=== PATIENT | female | born 1995 | race Caucasian/White ===

== ENCOUNTER 2019-03-02 06:27 | Emergency (ER) | payer SELFPAY ==
--- NOTE | 2019-03-02 07:27 | ED.PDOC ---
History of Present Illness - General Chief Complaint: ENT Problem Stated Complaint: right side of face swollen and painful Time Seen by Provider: 03/02/19 07:16 Additional Information: Patient is a 23-year-old female who presents to the ED with chief complaint of right periauricular pain. Patient indicates she has pain anterior to her right ear, posterior, and in the submandibular region inferior to the right ear. Patient denies intrinsic ear ache, hearing loss or discharge from the ear. Patient denies nausea, vomiting, fever, chills. She does not have a headache. No history of previous similar symptoms. Patient indicates she is presently having a cold with nasal congestion, rhinorrhea, mild sore throat, and occasional dry cough. Patient is otherwise asymptomatic and healthy with no other medical concerns. Patient has taken OTC Motrin and Midol with temporary relief of her symptoms. - History of Present Illness Allergies/Adverse Reactions: Allergies NO KNOWN ALLERGY Allergy (Unverified 02/24/12 07:36) Home Medications: Ambulatory Orders Cephalexin [Keflex] 500 mg PO QID #28 cap 09/20/13 Acetaminophen W/ Codeine [Tylenol W/ CODEINE #3] 1 ea PO Q6H PRN #20 03/02/19 Amoxicillin & Pot Clavulanate [Augmentin Tab] 875 mg PO BID #14 tab 03/02/19 Review of Systems - Review of Systems Constitutional: Denies: chills, fever EENTM: States: see HPI Respiratory: States: cough - dry. Denies: short of breath Cardiology: States: no symptoms reported. Denies: chest pain Gastrointestinal/Abdominal: States: no symptoms reported. Denies: abdominal pain, nausea, vomiting Musculoskeletal: States: no symptoms reported. Denies: muscle pain, muscle stiffness Skin: States: no symptoms reported. Denies: rash Endocrine: States: no symptoms reported Hematologic/Lymphatic: States: no symptoms reported All other Systems: Reviewed and Negative Past Medical History (General) - Patient Medical History Hx Seizures: No Hx Stroke: No Hx Dementia: No Hx Asthma: No Hx of COPD: No Hx Cardiac Disorders: No Hx Congestive Heart Failure: No Hx Pacemaker: No Hx Hypertension: No Hx Thyroid Disease: No Hx Diabetes: No Hx Gastroesophageal Reflux: No Hx Renal Disease: No Hx Cancer: No Hx of HIV: No Hx Hepatitis C: No Hx MRSA: No Surgical History: no surgical history - Vaccination History Hx Tetanus, Diphtheria Vaccination: Yes Hx Influenza Vaccination: No Hx Pneumococcal Vaccination: No Immunizations Up to Date: Yes - Social History Hx Tobacco Use: No Hx Alcohol Use: No Hx Substance Use: No Hx Substance Use Treatment: No Hx Depression: No Feels Threatened In Home Enviroment: No Feels Threatened In a Relationship: No Hx Physical Abuse: No Hx Emotional Abuse: No Hx Suspected Abuse: No - Activities of Daily Living Hospice Agency (if applicable):: None - Female History Patient is a Female of Child Bearing Age (10 -59 yrs old): Yes Hx Last Menstrual Period: 09/20/13 Patient : No Family Medical History - Family History Mother Family History: Unknown Physical Exam - Physical Exam General Appearance: Alert, Anxious, No apparent distress Eye Exam: bilateral normal Ear Exam: right ear: other - normal inspection right ear and auricle with normal periauricular exam. There is no erythema, edema, or lesions. Patient has hyperesthesia to light touch in the periauricular and submandibular region., bilateral ear: auricle normal, canal normal, TM normal Nasal Exam: normal inspection Throat Exam: normal mouth inspection, pharynx normal Neck: full range of motion, supple, normal inspection, other - Negative lymphadenopathy Cardiovascular/Respiratory: regular rate, rhythm, no M/R/G - ., normal peripheral pulses Neurologic: resident care associate II-XII nml as tested, no motor/sensory deficits, alert, normal mood/affect, oriented x 3 Skin Exam: normal color Progress - Progress Progress: 03/02/19 09:19 Patient feeling much better at this time status post analgesics. Patient's labs are unremarkable but her CT suggests post auricular cellulitis. Him there is no appreciable erythema or edema post originally but patient does have tenderness to palpation. Will give Augmentin in the ED and dizzy with same and patient to follow-up with her PCP in 2 days for reevaluation. Return to ED precautions discussed including fever, intractable pain, and vomiting. - Results/Orders Results/Orders: 03/02/19 06:51 STREP A SCREEN CULTURE Stat 03/02/19 07:24 Hold Metformin x 48Hrs [id number] 03/02/19 09:14 Amoxicillin & Pot Clavulanate [Augmentin Tab] 875 mg PO ONCE ONE Laboratory Results WBC 7.4 K/mm3 (4.8-10.8) 03/02/19 07:35 RBC 4.83 M/mm3 (4.20-5.40) 03/02/19 07:35 Hgb 13.9 gm/dL (12.0-16.0) 03/02/19 07:35 Hct 42.5 % (36.0-47.0) 03/02/19 07:35 MCV 87.9 fl (81.0-99.0) 03/02/19 07:35 MCH 28.8 pg (27.0-31.0) 03/02/19 07:35 MCHC 32.8 g/dL (33.0-37.0) L 03/02/19 07:35 RDW 13.4 % (11.5-14.5) 03/02/19 07:35 Plt Count 311 K/mm3 (130-400) 03/02/19 07:35 MPV 8.8 fl (7.40-10.4) 03/02/19 07:35 Absolute Neuts (auto) 4.50 K/uL (1.8-6.8) 03/02/19 07:35 Absolute Lymphs (auto) 2.30 K/uL (1.0-3.4) 03/02/19 07:35 Absolute Monos (auto) 0.30 K/uL (0.2-0.8) 03/02/19 07:35 Absolute Eos (auto) 0.10 K/uL (0.0-0.4) 03/02/19 07:35 Absolute Basos (auto) 0.10 K/uL (0.0-0.1) 03/02/19 07:35 Neutrophils % 61.1 % (42.0-78.0) 03/02/19 07:35 Lymphocytes % 31.4 % (20.0-50.0) 03/02/19 07:35 Monocytes % 4.6 % (2.0-9.0) 03/02/19 07:35 Eosinophils % 1.8 % (1.0-5.0) 03/02/19 07:35 Basophils % 1.1 % (0.0-2.0) 03/02/19 07:35 Sodium 137 mmol/L (135-145) 03/02/19 07:35 Potassium 3.9 mmol/L (3.6-5.0) 03/02/19 07:35 Chloride 105 mmol/L (101-111) 03/02/19 07:35 Carbon Dioxide 23 mmol/L (21-31) 03/02/19 07:35 Anion Gap 12.9 (12-18) 03/02/19 07:35 BUN 11 mg/dL (7-18) 03/02/19 07:35 Creatinine 0.71 mg/dL (0.6-1.3) 03/02/19 07:35 BUN/Creatinine Ratio 15.5 (10-20) 03/02/19 07:35 Random Glucose 99 mg/dL (70-105) 03/02/19 07:35 Serum Osmolality 273.2 mOsm/L (275-295) L 03/02/19 07:35 Calcium 9.0 mg/dL (8.4-10.2) 03/02/19 07:35 Urine HCG, Qual Negative (NEGATIVE) 03/02/19 07:00 Group A Strep Rapid Negative (NEGATIVE) 03/02/19 06:51 TECHNIQUE: Spiral CT examination of the neck performed. Multiplanar reformats performed. Intravenous contrast was utilized. This exam was performed according to our departmental dose-optimization program, which includes automated exposure control, adjustment of the mA and/or kV according to patient size and/or use of iterative reconstruction technique. CLINICAL HISTORY PROVIDED: right sugey-auricular/ submandib pain COMPARISON: None available. FINDINGS: Nasal Cavity: Unremarkable. Paranasal Sinuses: Mucosal disease in the right maxillary sinus. Nasopharynx: Unremarkable. Oropharynx: Unremarkable. Oral Cavity: Unremarkable. Hypopharynx: Unremarkable. Larynx: Unremarkable. Trachea: Unremarkable. Thyroid: Unremarkable. Parotid Glands: Unremarkable. Submandibular Glands: Unremarkable. Carotids / Internal Jugular Veins: Unremarkable. Skull Base: Unremarkable. Visible Brain and Orbits: Unremarkable. Lymph Nodes: Bilateral enlarged cervical lymph nodes. A reference right cervical lymph node measures 1.0 cm series 2 [employer] [address] [place] [address], [address] [place] [address] T [phone] F [phone] [email or web address] - Report exported on Mar 02, 2019 09:18:11 -0600 - Page 2 of 2 image 37. A reference left cervical lymph node measures 1.1 cm series 2 image 40. Soft Tissue Mass / Abscess: No soft tissue mass or abscess identified. However there is asymmetric right posterior periauricular skin thickening and subcutaneous fat stranding best seen series 2 image 16. No drainable fluid collection identified. Incidental Findings: None of significance. IMPRESSION: 1. Asymmetric right posterior periauricular skin thickening and subcutaneous fat stranding which may be infectious (cellulitis). No drainable fluid collection identified. 2. Bilateral cervical lymph nodes which may be reactive. Electronically signed by: Cesario Barboza MD 03/02/2019 8:54 AM MANAGER DATABASE Departure - Departure Clinical Impression: Cellulitis and abscess of head Time of Disposition: 09:22 Disposition: Discharge to Home or Self Care Condition: Good Departure Forms: ED Discharge - Pt. Copy, Patient Portal Self Enrollment Instructions: DI for Ear Pain-Adult, Cellulitis and Erysipelas (Skin Infections) Referrals: Emy Banks NP [Primary Care Provider] - 1-2 Days Prescriptions: Acetaminophen W/ Codeine [Tylenol W/ CODEINE #3] 1 ea PO Q6H PRN #20 PRN Reason: Pain Amoxicillin & Pot Clavulanate [Augmentin Tab] 875 mg PO BID #14 tab Home Medications: Ambulatory Orders Cephalexin [Keflex] 500 mg PO QID #28 cap 09/20/13 Acetaminophen W/ Codeine [Tylenol W/ CODEINE #3] 1 ea PO Q6H PRN #20 03/02/19 Amoxicillin & Pot Clavulanate [Augmentin Tab] 875 mg PO BID #14 tab 03/02/19
[2019-03-02] MEDS: HYDROcodone 10MG/APAP 325MG 1 EA TAB PO ONE (07:34)
--- NOTE | 2019-03-02 08:55 | CT ---
TECHNIQUE: Spiral CT examination of the neck performed. Multiplanar reformats performed. Intravenous contrast was utilized. This exam was performed according to our departmental dose-optimization program, which includes automated exposure control, adjustment of the mA and/or kV according to patient size and/or use of iterative reconstruction technique. CLINICAL HISTORY PROVIDED: right sugey-auricular/ submandib pain COMPARISON: None available. FINDINGS: Nasal Cavity: Unremarkable. Paranasal Sinuses: Mucosal disease in the right maxillary sinus. Nasopharynx: Unremarkable. Oropharynx: Unremarkable. Oral Cavity: Unremarkable. Hypopharynx: Unremarkable. Larynx: Unremarkable. Trachea: Unremarkable. Thyroid: Unremarkable. Parotid Glands: Unremarkable. Submandibular Glands: Unremarkable. Carotids / Internal Jugular Veins: Unremarkable. Skull Base: Unremarkable. Visible Brain and Orbits: Unremarkable. Lymph Nodes: Bilateral enlarged cervical lymph nodes. A reference right cervical lymph node measures 1.0 cm series 2 image 37. A reference left cervical lymph node measures 1.1 cm series 2 image 40. Soft Tissue Mass / Abscess: No soft tissue mass or abscess identified. However there is asymmetric right posterior periauricular skin thickening and subcutaneous fat stranding best seen series 2 image 16. No drainable fluid collection identified. Incidental Findings: None of significance. IMPRESSION: 1. Asymmetric right posterior periauricular skin thickening and subcutaneous fat stranding which may be infectious (cellulitis). No drainable fluid collection identified. 2. Bilateral cervical lymph nodes which may be reactive. Electronically signed by: Cesario Barboza MD 03/02/2019 8:54 AM BELT TURNER
[2019-03-02] MEDS: AMOXICILLIN & POT CLAVULANATE 875 MG TAB PO ONE (09:22)
[2019-03-02 09:45] VITALS: BP 116/76; TEMP 98; O2SAT 99
== END 2019-03-02 09:35 | disposition home or self-care (01) ==
LOC: ER 06:27
DX: L02.811 Cutaneous abscess of head [any part, except face] (principal)

== ENCOUNTER 2019-03-04 21:32 | Inpatient (IN) | payer SELFPAY ==
--- NOTE | 2019-03-04 21:38 | ED.PDOC ---
History of Present Illness - General Time Seen by Provider: 03/04/19 21:36 Source: patient - History of Present Illness Initial Comments: 23 yo female who presents with cc of headache and facial cellulitis. Pt reports onset of right-sided preauricular facial swelling and pain which began 4 days ago and worsened for 2 days. Pt was seen here 2 days ago and diagnosed with facial cellulitis by CT scan and begun on amoxicillin. She reports her swelling and pain to right preauricular region is improved, now only constant 2/10 pressure-like pain to the area with some radiation to right ear and right jaw. However, reports new onset today of pain "in my head" behind both eyes and also posterior scalp pain. Pain behind her eyes is described as pressure-like, constant, 6/10 severity, worse with bright lights, nothing tried for relief. Also reports intermittent sharp/stabbing icepick-like pain to back of her head without radiation. Denies any neck pain or stiffness. Denies any fevers or chills but her coworkers told her she felt warm earlier. States she feels like the amoxicillin is making her feel tired and fatigued. Was supposed to work tonight but couldn't go in due to the fatigue so she came to the ED. Allergies/Adverse Reactions: Allergies NO KNOWN ALLERGY Allergy (Unverified 02/24/12 07:36) Home Medications: Ambulatory Orders Acetaminophen W/ Codeine [Tylenol W/ CODEINE #3] 1 ea PO Q6H PRN #20 03/02/19 Amoxicillin & Pot Clavulanate [Augmentin Tab] 875 mg PO BID #14 tab 03/02/19 Review of Systems - Review of Systems Review of Systems: 03/04/19 21:59 as per HPI All other Systems: Reviewed and Negative Past Medical History (General) - Patient Medical History Hx Seizures: No Hx Stroke: No Hx Dementia: No Hx Asthma: No Hx of COPD: No Hx Cardiac Disorders: No Hx Congestive Heart Failure: No Hx Pacemaker: No Hx Hypertension: No Hx Thyroid Disease: No Hx Diabetes: No Hx Gastroesophageal Reflux: No Hx Renal Disease: No Hx Cancer: No Hx of HIV: No Hx Hepatitis C: No Hx MRSA: No - Vaccination History Hx Tetanus, Diphtheria Vaccination: Yes Hx Influenza Vaccination: No Hx Pneumococcal Vaccination: No - Social History Hx Tobacco Use: No Hx Alcohol Use: No Hx Substance Use: No Hx Substance Use Treatment: No Hx Depression: No Hx Physical Abuse: No Hx Emotional Abuse: No Hx Suspected Abuse: No - Female History Hx Last Menstrual Period: 09/20/13 Patient : No Family Medical History - Family History Mother Family History: Unknown Physical Exam - Physical Exam General Appearance: Alert, Comfortable, No apparent distress Eye Exam: bilateral normal, bilateral other - periorbital regions and eyes appear normal BL on inspection without erythema/swelling/warmth/induration. Pt reports moderate right periorbital ttp. EOMI. PERRLA. Ears, Nose, Throat: hearing grossly normal, normal ENT inspection Neck: non-tender, full range of motion, supple, normal inspection Respiratory: lungs clear, normal breath sounds, no respiratory distress, no accessory muscle use Cardiovascular/Chest: normal peripheral pulses, regular rate, rhythm, no edema, no murmur Gastrointestinal/Abdominal: non tender, soft, no organomegaly Back Exam: normal inspection, no CVA tenderness, no vertebral tenderness Extremity: normal range of motion, non-tender, normal inspection, no pedal edema, no calf tenderness Neurologic: regional marketing director II-XII nml as tested, no motor/sensory deficits, alert, normal mood/affect, oriented x 3 Skin Exam: normal color, warm/dry, other - Right preauricular region with mild soft tissue swelling and moderate ttp without warmth/induration/fluctuance, posterior scalp with mild ttp but without swelling/warmth/redness/induration Lymphatic: other - moderate right cervical and preauricular tender ROB Progress - Progress Progress: 03/04/19 22:01 Headache -in setting of facial cellulitis, consider spread of cellulitis, orbital cellulitis, etc... however, appears clinically to be improving on Abx therapy and no concerning ocular/periorbital findings on exam. No meningeal signs present. Consider also periosteal abscess vs acute mastoiditis vs other. -obtain repeat CBC, BMP, likely will obtain CT head, orbits, sinuses, soft tissue neck for further eval -1 L NS bolus, Toradol 30 mg IV for pain 03/04/19 23:52 -WBC has increased from 7,400 2 days ago, now to 13,800 with 68% segs and no bands, lactate 1.3. 03/05/19 00:29 -CT scans show no significant changes from 03/02 scans. No evidence of orbital cellulitis or any other concerning intracranial processes. -Spoke with [facility] and Jayme [facility] [place] and ophthalmology not availab le/on-call at the moment. Thus called [facility] in [place] and spoke with tape transferrer who is reaching out to the mirror polisher there for phone consultation regarding patient. 03/05/19 01:15 -Spoke with ophthalmology at [facility] regarding patient. She feels given pt's reassuring exam and CT findings, orbital cellulitis very unlikely and no emergent/urgent ophtho consultation warranted at this time. Advises can admit here for IV Abx, follow clinical course, transition to oral Abx as patient improves. If patient worsens or develops worsening visual sx's despite trx, can transfer at that time as clinically warranted. -Spoke with Lorraine Cardenas, hospitalist, who accepts pt for admission. She asks that we add ESR, CRP to labwork - orders placed. Wisam Machado MD Billing #[id number] - Results/Orders Results/Orders: 03/04/19 21:51 Sodium Chloride 0.9% (Flush) [Saline Flush Syringe] 10 ml IV PRN PRN 03/04/19 21:52 IV Care:Saline Lock per Protoc QSHIFT 03/04/19 22:27 Hold Metformin x 48Hrs [id number] 03/04/19 22:35 BLOOD CULTURE Stat 03/04/19 23:25 Vancomycin HCl Inj 1,000 mg Vancomycin HCl Inj 500 mg Sodium Chloride 0.9% 250Ml [NS 250ml] 250 ml IVPB ONCE 03/05/19 01:06 C-REACTIVE PROTEIN Stat ERYTHROCYTE SEDIMENTATION RATE Stat 03/05/19 01:13 ED Intent to Admit Routine Laboratory Results - last 24 hr 03/04/19 03/04/19 03/04/19 21:52 21:52 21:52 WBC 13.8 H D RBC 4.80 Hgb 13.4 Hct 41.4 MCV 86.4 MCH 28.0 MCHC 32.4 L RDW 13.5 Plt Count 348 MPV 8.8 Absolute Neuts (auto) 9.40 H Absolute Lymphs (auto) 3.50 H Absolute Monos (auto) 0.70 Absolute Eos (auto) 0.20 Absolute Basos (auto) 0.10 Neutrophils % 68.4 Lymphocytes % 25.1 Monocytes % 4.9 Eosinophils % 1.1 Basophils % 0.5 Sodium 137 Potassium 3.8 Chloride 100 L Carbon Dioxide 26 Anion Gap 14.8 BUN 12 Creatinine 0.74 BUN/Creatinine Ratio 16.2 Random Glucose 162 H D Serum Osmolality 277.1 Lactic Acid Calcium 9.4 Urine Color Urine Appearance Urine pH Ur Specific [place] Urine Protein Urine Glucose (UA) Urine Ketones Urine Blood Urine Nitrite Urine Bilirubin Urine Urobilinogen Ur Leukocyte Esterase Urine RBC Urine WBC Ur Epithelial Cells Urine Bacteria Urine Yeast Urine HCG, Qual Negative 03/04/19 03/04/19 22:21 22:44 WBC RBC Hgb Hct MCV MCH MCHC RDW Plt Count MPV Absolute Neuts (auto) Absolute Lymphs (auto) Absolute Monos (auto) Absolute Eos (auto) Absolute Basos (auto) Neutrophils % Lymphocytes % Monocytes % Eosinophils % Basophils % Sodium Potassium Chloride Carbon Dioxide Anion Gap BUN Creatinine BUN/Creatinine Ratio Random Glucose Serum Osmolality Lactic Acid 1.3 Calcium Urine Color Yellow Urine Appearance Sl cloudy Urine pH 5.0 Ur Specific [place] >= 1.030 Urine Protein Negative Urine Glucose (UA) Negative Urine Ketones Negative Urine Blood Negative Urine Nitrite Negative Urine Bilirubin Negative Urine Urobilinogen 0.2 Ur Leukocyte Esterase Negative Urine RBC 0-1 Urine WBC 3-5 H Ur Epithelial Cells 20-30 Urine Bacteria Rare Urine Yeast 2+ budding H Urine HCG, Qual Departure - Departure Clinical Impression: Cellulitis of multiple sites of head and neck Time of Disposition: :13 Disposition: Admit Patient Condition: Fair Referrals: Emy Banks NP [Family Provider] - 1-2 Weeks Home Medications: Ambulatory Orders Acetaminophen W/ Codeine [Tylenol W/ CODEINE #3] 1 ea PO Q6H PRN #20 03/02/19 Amoxicillin & Pot Clavulanate [Augmentin Tab] 875 mg PO BID #14 tab 03/02/19 Decision To Admit - Decistion To Admit Decision to Admit Reason: Admit from ER Decision to Admit Date: 03/05/19 Decision to Admit Time: 01:
[2019-03-04] MEDS ORDERED: SODIUM CHLORIDE 0.9% (FLUSH) 10 ML SYG IV PRN (21:51)
[2019-03-04] MEDS ORDERED: SODIUM CHLORIDE 0.9% 1000ML 1,000 ML IVS ONE (21:52)
[2019-03-04] MEDS ORDERED: KETOROLAC TROMETHAMINE INJ 30 MG/ML VIAL IV ONE (21:52)
[2019-03-04] MEDS ORDERED: cefTRIAXone SODIUM 2 GM in SODIUM CHL 0.9% 100ML MINI-BAG 100 ML IVPB ONE (23:25)
[2019-03-04] MEDS ORDERED: VANCOMYCIN HCL INJ 1,000 MG, VANCOMYCIN HCL INJ 500 MG in SODIUM CHLORIDE 0.9% 250ML 25... IVPB ONE (23:25)
[2019-03-04] MEDS ORDERED: SODIUM CHL 0.9% 100ML MINI-BAG 100 ML IVPB ONE (23:34)
--- NOTE | 2019-03-04 23:52 | CT ---
EXAM DESCRIPTION: Head w/Contrast (accession [id number]), Soft Tissue Neck w/Contrast (accession [id number]), Orbits (accession [id number]), Sinuses (accession [id number]) CLINICAL HISTORY: 23 years Female Rt facial cellulitis, now with retroorbital pain COMPARISON: CT soft tissue neck with contrast dated March 02, 2019 Technique: Contiguous axial images of the sinuses and orbits were obtained without the administration of intravenous contrast. Additionally, CT head and soft tissue neck were obtained after the administration of IV contrast. These exams were performed according to our departmental dose-optimization program which includes use of Automated Exposure Control, adjustment of the mA and/or kV according to patient size and/or use of iterative reconstruction technique. FINDINGS: HEAD, ORBITS AND SINUSES Brain: No acute intracranial hemorrhage. No extra-axial collection. No mass effect or herniation. No abnormal intracranial enhancement. Opacified dural venous sinuses are patent. Ventricles: Within normal limits in size. Globes and orbits: Globes and orbits are within normal limits. No crowding of the orbital apex. The extraocular muscles are symmetric. No proptosis. Optic nerve sheath complex are within normal limits.. Bones: No acute osseous finding Paranasal sinuses: Paranasal sinuses are clear. No air-fluid level. No polypoid mass. Mastoid air cells: Well pneumatized. NECK: Thyroid: Unremarkable. Submandibular: Unremarkable. Parotid: Unremarkable. [place] tonsils: Unremarkable. Parapharyngeal fat: No displacement. Epiglottis: Unremarkable. Nasal pharynx/oropharynx: Prominence of the nasopharyngeal mucosa. Larynx: Within normal limits. Welder Plasma Arc space: Unremarkable. Prevertebral space: No edema. Vascular structures: Unremarkable. Bones: Unremarkable. IMPRESSION: No acute intracranial abnormality or abnormal enhancement. Unchanged subcutaneous nodules in the right retroauricular/perimastoid soft tissues. No retrobulbar abnormality. No paranasal sinus disease. Electronically signed by: Grover Richardson DO 03/04/2019 11:51 PM PIPE ORGAN BUILDER
--- NOTE | 2019-03-04 23:52 | CT ---
EXAM DESCRIPTION: Head w/Contrast (accession [id number]), Soft Tissue Neck w/Contrast (accession [id number]), Orbits (accession [id number]), Sinuses (accession [id number]) CLINICAL HISTORY: 23 years Female Rt facial cellulitis, now with retroorbital pain COMPARISON: CT soft tissue neck with contrast dated March 02, 2019 Technique: Contiguous axial images of the sinuses and orbits were obtained without the administration of intravenous contrast. Additionally, CT head and soft tissue neck were obtained after the administration of IV contrast. These exams were performed according to our departmental dose-optimization program which includes use of Automated Exposure Control, adjustment of the mA and/or kV according to patient size and/or use of iterative reconstruction technique. FINDINGS: HEAD, ORBITS AND SINUSES Brain: No acute intracranial hemorrhage. No extra-axial collection. No mass effect or herniation. No abnormal intracranial enhancement. Opacified dural venous sinuses are patent. Ventricles: Within normal limits in size. Globes and orbits: Globes and orbits are within normal limits. No crowding of the orbital apex. The extraocular muscles are symmetric. No proptosis. Optic nerve sheath complex are within normal limits.. Bones: No acute osseous finding Paranasal sinuses: Paranasal sinuses are clear. No air-fluid level. No polypoid mass. Mastoid air cells: Well pneumatized. NECK: Thyroid: Unremarkable. Submandibular: Unremarkable. Parotid: Unremarkable. [place] tonsils: Unremarkable. Parapharyngeal fat: No displacement. Epiglottis: Unremarkable. Nasal pharynx/oropharynx: Prominence of the nasopharyngeal mucosa. Larynx: Within normal limits. T[employer] Debeader space: Unremarkable. Prevertebral space: No edema. Vascular structures: Unremarkable. Bones: Unremarkable. IMPRESSION: No acute intracranial abnormality or abnormal enhancement. Unchanged subcutaneous nodules in the right retroauricular/perimastoid soft tissues. No retrobulbar abnormality. No paranasal sinus disease. Electronically signed by: Grover Richardson DO 03/04/2019 11:51 PM PRIOR AUTHORIZATION NURSE
--- NOTE | 2019-03-04 23:52 | CT ---
EXAM DESCRIPTION: Head w/Contrast (accession [id number]), Soft Tissue Neck w/Contrast (accession [id number]), Orbits (accession [id number]), Sinuses (accession [id number]) CLINICAL HISTORY: 23 years Female Rt facial cellulitis, now with retroorbital pain COMPARISON: CT soft tissue neck with contrast dated March 02, 2019 Technique: Contiguous axial images of the sinuses and orbits were obtained without the administration of intravenous contrast. Additionally, CT head and soft tissue neck were obtained after the administration of IV contrast. These exams were performed according to our departmental dose-optimization program which includes use of Automated Exposure Control, adjustment of the mA and/or kV according to patient size and/or use of iterative reconstruction technique. FINDINGS: HEAD, ORBITS AND SINUSES Brain: No acute intracranial hemorrhage. No extra-axial collection. No mass effect or herniation. No abnormal intracranial enhancement. Opacified dural venous sinuses are patent. Ventricles: Within normal limits in size. Globes and orbits: Globes and orbits are within normal limits. No crowding of the orbital apex. The extraocular muscles are symmetric. No proptosis. Optic nerve sheath complex are within normal limits.. Bones: No acute osseous finding Paranasal sinuses: Paranasal sinuses are clear. No air-fluid level. No polypoid mass. Mastoid air cells: Well pneumatized. NECK: Thyroid: Unremarkable. Submandibular: Unremarkable. Parotid: Unremarkable. [place] tonsils: Unremarkable. Parapharyngeal fat: No displacement. Epiglottis: Unremarkable. Nasal pharynx/oropharynx: Prominence of the nasopharyngeal mucosa. Larynx: Within normal limits. [employer] Glazier space: Unremarkable. Prevertebral space: No edema. Vascular structures: Unremarkable. Bones: Unremarkable. IMPRESSION: No acute intracranial abnormality or abnormal enhancement. Unchanged subcutaneous nodules in the right retroauricular/perimastoid soft tissues. No retrobulbar abnormality. No paranasal sinus disease. Electronically signed by: Grover Richardson DO 03/04/2019 11:51 PM [employer]
--- NOTE | 2019-03-04 23:53 | CT ---
EXAM DESCRIPTION: Head w/Contrast (accession [id number]), Soft Tissue Neck w/Contrast (accession [id number]), Orbits (accession [id number]), Sinuses (accession [id number]) CLINICAL HISTORY: 23 years Female Rt facial cellulitis, now with retroorbital pain COMPARISON: CT soft tissue neck with contrast dated March 02, 2019 Technique: Contiguous axial images of the sinuses and orbits were obtained without the administration of intravenous contrast. Additionally, CT head and soft tissue neck were obtained after the administration of IV contrast. These exams were performed according to our departmental dose-optimization program which includes use of Automated Exposure Control, adjustment of the mA and/or kV according to patient size and/or use of iterative reconstruction technique. FINDINGS: HEAD, ORBITS AND SINUSES Brain: No acute intracranial hemorrhage. No extra-axial collection. No mass effect or herniation. No abnormal intracranial enhancement. Opacified dural venous sinuses are patent. Ventricles: Within normal limits in size. Globes and orbits: Globes and orbits are within normal limits. No crowding of the orbital apex. The extraocular muscles are symmetric. No proptosis. Optic nerve sheath complex are within normal limits.. Bones: No acute osseous finding Paranasal sinuses: Paranasal sinuses are clear. No air-fluid level. No polypoid mass. Mastoid air cells: Well pneumatized. NECK: Thyroid: Unremarkable. Submandibular: Unremarkable. Parotid: Unremarkable. [place] tonsils: Unremarkable. Parapharyngeal fat: No displacement. Epiglottis: Unremarkable. Nasal pharynx/oropharynx: Prominence of the nasopharyngeal mucosa. Larynx: Within normal limits. Wire Repairer space: Unremarkable. Prevertebral space: No edema. Vascular structures: Unremarkable. Bones: Unremarkable. IMPRESSION: No acute intracranial abnormality or abnormal enhancement. Unchanged subcutaneous nodules in the right retroauricular/perimastoid soft tissues. No retrobulbar abnormality. No paranasal sinus disease. Electronically signed by: Grover Richardson DO 03/04/2019 11:51 PM [facility]
[2019-03-05] MEDS ORDERED: VANCOMYCIN HCL INJ 500 MG VIAL ONE ×3 (00:40→19:55)
[2019-03-05] MEDS ORDERED: SODIUM CHLORIDE 0.9% 250ML 250 ML ONE ×3 (00:40→19:56)
[2019-03-05] MEDS ORDERED: VANCOMYCIN HCL INJ 1,000 MG VIAL IVPB ONE ×3 (00:40→19:57)
--- NOTE | 2019-03-05 01:32 | HP ---
SUPERVISING PHYSICIAN: Javier Calderón MD CHIEF COMPLAINT: Right-sided facial swelling and pain. HISTORY OF PRESENT ILLNESS: This is a 23 year-old female patient who presented to the Emergency Room with headache and facial cellulitis on the right jaw line. She has some preauricular facial swelling and pain that began four days ago. She was seen in the Emergency Room a few days ago and was given Augmentin. Over the next two days it progressively worsened to the point that she came to the Emergency Room due to pressure behind her eyes as well as the back of her head and that extended down into the chin area and down her neck. She had also received some Tylenol No. 3 at the time she was in the Emergency Room previously and those were not helping She also has some photophobia as well as intermittent sharp pain to the back of her head. She has had no fever or chills but she did complain of some subjective fever. In the Emergency Room, her initial vital signs showed a temperature of 97.4 with a heart rate of 104, blood pressure 133/84, respiratory rate of 18 and oxygen saturation of 98%. Her lab was done and her WBCs were 13,800. She was in the Emergency Room two days ago and her WBCs were 7,400. Her hemoglobin and hematocrit were stable at 13.4 and 41.4. Electrolytes were basically within normal limits with the exception of her chloride was slightly low at 100 and her blood sugar was slightly high at 162. Lactic acid was 1.3. Urinalysis was unremarkable except for 2+ yeast. Blood cultures were drawn. The Emergency Room doctor also ordered a head CT as well as an orbit and sinus CT. Results of the head CT, sinus CT, orbital CT and soft tissue of the neck showed no acute intracranial abnormality or abnormal enhancement, unchanged subcutaneous nodules in the right retroauricular/perimastoid soft tissues. No retrobulbar abnormality, no paranasal sinus disease. The Emergency Room physician had concerns for orbital edema or cellulitis due to her headache so he called an combat systems operator mine warfare at [facility] and because of the reassuring exam as well as CT findings, orbital cellulitis was unlikely and thought it could be treated as an inpatient with IV antibiotics in the hospital. He had started Rocephin and vancomycin and she agreed with those antibiotic orders. She was also given some Toradol for pain and I was called for hospital admission. PAST MEDICAL HISTORY: Attention deficit hyperactivity disorder. PAST SURGICAL HISTORY: None. OUTPATIENT MEDICATIONS: Vyvanse. ALLERGIES: No known drug allergies. SOCIAL HISTORY: She worked at [employer]. She is single. She lives in [place]. She denies any smoking or alcohol use. She smokes marijuana very rarely and uses no other illegal drugs. REVIEW OF SYSTEMS: GENERAL: Positive for fatigue and subjective fever, negative for weight changes. HEENT: As per history of present illness. RESPIRATORY: Negative for coughing, wheezing, shortness of breath. CARDIAC: Negative for chest pain, palpitations, tachycardia. GI: Negative for nausea, vomiting, diarrhea or constipation.. GENITOURINARY: Negative for hematuria, dysuria, polyuria. SKIN: Negative for lesions or rashes. NEUROLOGICAL: Positive for headache, mild dizziness, negative for seizures. Labs and films are as per the history of present illness. PHYSICAL EXAMINATION: VITAL SIGNS: GENERAL: 23yo female lying in hospital bed. She is in no acute distress. HEENT: Normocephalic, atraumatic. Her pupils are equal and reactive. Her right jaw is edematous and warm to touch. It is very tender to palpation along the right jaw and preauricular area as well as behind her ear to the occipital area of her head. NECK: Supple without mass. CHEST: Clear to auscultation bilaterally. There is equal rise and fall of the chest with inspiration and expiration CARDIOVASCULAR: Regular rate and rhythm. ABDOMEN: soft, nondistended, non tender. Bowel sounds are positive EXTREMITIES: No cyanosis, clubbing, or edema. NEUROLOGIC: Awake, alert, and oriented. Cranial nerves II-XII are grossly intact as tested. RECTAL: Deferred. ASSESSMENT: 1. Sepsis due to acute facial cellulitis with concerns for developing orbital infection. She has failed outpatient treatment. Her admission heart rate was 104 and WBCs of 13,000. 2. Vaginal yeast infection. 3. History of ADHD, on Vyvanse. PLAN: The patient has been admitted to the hospital. She received some IV fluids in the Emergency Room and I will give her an additional liter. She will continue with her Rocephin and vancomycin will be per pharmacy protocol. I have given her Lovenox for DVT prophylaxis as well as 4 additional doses of Toradol. I have restarted her Tylenol #3 and Vyvanse, gave her one dose of Diflucan and encouraged good pulmonary hygiene as well as walking frequently in the hallways. We discussed that she would need several days of IV antibiotics and we may need to call Dr. Rosa, Infectious Disease, for recommendations on outpatient antibiotic therapy. We will continue to monitor closely and follow as needed. [id number]
[2019-03-05] MEDS ORDERED: ONDANSETRON INJ 4 MG/2 ML VIAL IV PRN (02:57)
[2019-03-05] MEDS ORDERED: ACETAMINOPHEN 325 MG TAB PO PRN (02:57)
[2019-03-05] MEDS ORDERED: IV SET AND CAP CHANGE INJ INJ SCH (03:00)
[2019-03-05] MEDS ORDERED: KCL 20 MEQ/NS 1,000 ML IVS ONE (03:02)
[2019-03-05] MEDS ORDERED: KETOROLAC TROMETHAMINE INJ 30 MG/ML VIAL IV PRN (03:04)
[2019-03-05] MEDS ORDERED: ACETAMINOPHEN W/COD #3 TAB 1 EA TAB PO PRN (07:51)
[2019-03-05] MEDS ORDERED: VANCOMYCIN PER PHARMACY IVPB SCH (08:00)
[2019-03-05] MEDS ORDERED: FLUCONAZOLE 150 MG TAB PO ONE (08:36)
[2019-03-05] MEDS: VANCOMYCIN HCL INJ 1,000 MG, VANCOMYCIN HCL INJ 500 MG in SODIUM CHLORIDE 0.9% 250ML 25... IVPB SCH (13:50)
[2019-03-05] MEDS ORDERED: FLUCONAZOLE 150 MG TAB ONE (16:14)
[2019-03-05] MEDS: SODIUM CHLORIDE 0.9% (FLUSH) 10 ML SYG IV SCH ×2 (16:15→21:17)
[2019-03-05] MEDS ORDERED: SODIUM CHL 0.9% 50ML MIN-BAG+ 50 ML IVPB ONE (19:56)
[2019-03-05] MEDS ORDERED: cefTRIAXone SODIUM 1 GM VIAL ONE (19:56)
[2019-03-05] MEDS: cefTRIAXone SODIUM 1 GM in SODIUM CHL 0.9% 50ML MIN-BAG+ 50 ML IVPB SCH (21:18)
[2019-03-05] MEDS: ENOXAPARIN SODIUM 40 MG/0.4 ML SYG SUBCU SCH (21:19)
[2019-03-06] MEDS: VANCOMYCIN HCL INJ 1,000 MG, VANCOMYCIN HCL INJ 500 MG in SODIUM CHLORIDE 0.9% 250ML 25... IVPB SCH ×2 (00:44→13:00)
[2019-03-06] MEDS: SODIUM CHLORIDE 0.9% (FLUSH) 10 ML SYG IV PRN ×2 (00:45→23:45)
[2019-03-06] MEDS ORDERED: VANCOMYCIN HCL INJ 1,000 MG, VANCOMYCIN HCL INJ 250 MG in SODIUM CHLORIDE 0.9% 250ML 25... IVPB SCH ×2 (13:00→13:30)
[2019-03-06] MEDS ORDERED: SODIUM CHLORIDE 0.9% 250ML 250 ML ONE ×2 (13:07→20:34)
[2019-03-06] MEDS ORDERED: VANCOMYCIN HCL INJ 1,000 MG VIAL IVPB ONE ×2 (13:07→20:34)
[2019-03-06] MEDS ORDERED: VANCOMYCIN HCL INJ 500 MG VIAL ONE ×2 (13:07→20:34)
[2019-03-06] MEDS: VANCOMYCIN HCL INJ 1,000 MG, VANCOMYCIN HCL INJ 250 MG in SODIUM CHLORIDE 0.9% 250ML 25... IVPB SCH ×2 (13:18→21:39)
--- NOTE | 2019-03-06 18:33 | PN ---
DATE: 03/06/19 SUPERVISING PHYSICIAN: Javier Calderón M.D. SUBJECTIVE: The patient is walking in the hallways. She feels much better. She feels like the swelling is gone on her right jaw. It is still somewhat tender to palpation. She has no shortness of breath, chest pain, nausea, vomiting or diarrhea. OBJECTIVE: VITAL SIGNS: Temperature 98, heart rate 65, blood pressure 97/61, respiratory rate 16, O2 saturation 99% on room air. HEENT: Normocephalic and atraumatic. Her right jaw line is much less edematous than yesterday. There is still some mild warmth noted in that area as well as some tenderness in the preauricular area as well as behind the ear. The tenderness to the back of the head is absent. There is no erythema. RESPIRATORY: Essentially clear to auscultation bilaterally. CARDIAC: Regular rate and rhythm. GASTROINTESTINAL: Abdomen is soft, nondistended, non-tender. Bowel sounds are positive. NEUROLOGIC: She is awake, alert and oriented times three. LABORATORY: CBC is basically within normal limits. ESR is 12. Electrolytes are also within normal limits. C reactive protein is 0.9. Preliminary blood cultures show no growth after 24 hours. All other labs and films have been reviewed via the EMR. ASSESSMENT: 1. Sepsis due to acute facial cellulitis with concerns for developing orbital infection. She has failed outpatient treatment. Her admission heart rate was 104 and WBCs of 13,000. 2. Vaginal yeast infection. 3. History of attention deficit hyperactivity disorder, on Vyvanse. PLAN: We will continue present supportive care, and continue her on her vancomycin and Rocephin. Due to her failure of outpatient treatment, will need to continue her on vancomycin through tomorrow and contact Dr. Rosa, Infectious Diseases physician in [place], as to how long she should continue her IV therapy and recommendations for medications once she goes home. Failed outpatient therapy included Augmentin. Clinically she is much improved and her labs are normalized, so I will hold on those for tomorrow. Hopefully she can be discharged on an oral antibiotic tomorrow or the next day. She is walking frequently in the hallways. Will continue to monitor closely and follow as needed. [facility][id number] [facility]
[2019-03-06] MEDS ORDERED: cefTRIAXone SODIUM 1 GM VIAL ONE (20:34)
[2019-03-06] MEDS ORDERED: SODIUM CHL 0.9% 50ML MIN-BAG+ 50 ML IVPB ONE (20:34)
[2019-03-06] MEDS: SODIUM CHLORIDE 0.9% (FLUSH) 10 ML SYG IV SCH ×2 (20:57→20:59)
[2019-03-06] MEDS: ENOXAPARIN SODIUM 40 MG/0.4 ML SYG SUBCU SCH ×2 (20:59→21:05)
[2019-03-06] MEDS: cefTRIAXone SODIUM 1 GM in SODIUM CHL 0.9% 50ML MIN-BAG+ 50 ML IVPB SCH (20:59)
[2019-03-07] MEDS ORDERED: VANCOMYCIN HCL INJ 1,000 MG VIAL IVPB ONE (02:53)
[2019-03-07] MEDS ORDERED: SODIUM CHLORIDE 0.9% 250ML 250 ML ONE (02:53)
[2019-03-07] MEDS ORDERED: VANCOMYCIN HCL INJ 500 MG VIAL ONE (02:53)
[2019-03-07] MEDS: VANCOMYCIN HCL INJ 1,000 MG, VANCOMYCIN HCL INJ 250 MG in SODIUM CHLORIDE 0.9% 250ML 25... IVPB SCH (04:45)
[2019-03-07 05:04] VITALS: TEMP 98.2
[2019-03-07 09:09] VITALS: BP 114/71; O2SAT 99
[2019-03-07] MEDS: SODIUM CHLORIDE 0.9% (FLUSH) 10 ML SYG IV SCH (09:58)
--- NOTE | 2019-03-14 08:18 | DS ---
SUPERVISING PHYSICIAN: Jing Hopper MD ADMISSION DIAGNOSIS: 1. Sepsis due to acute facial cellulitis with concerns for developing orbital infection. She has failed outpatient treatment. Her admission heart rate was 104 and WBCs of 13,000. 2. Vaginal yeast infection. 3. History of ADHD, on Vyvanse. DISCHARGE DIAGNOSIS: 1. Sepsis due to acute facial cellulitis with concerns for developing orbital infection. The patient showed response to treatment. 2. Vaginal yeast infection, treated with Diflucan. 3. History of attention deficit hyperactivity disorder, on Vyvanse. REASON FOR HOSPITALIZATION: This is a 23 year-old female patient who presented to the Emergency Room with headache and facial cellulitis on the right jaw line. She has some preauricular facial swelling and pain that began four days ago. She was seen in the Emergency Room a few days ago and was given Augmentin. Over the next two days it progressively worsened to the point that she came to the Emergency Room due to pressure behind her eyes as well as the back of her head and that extended down into the chin area and down her neck. She had also received some Tylenol No. 3 at the time she was in the Emergency Room previously and those were not helping She also has some photophobia as well as intermittent sharp pain to the back of her head. She has had no fever or chills but she did complain of some subjective fever. In the Emergency Room, her initial vital signs showed a temperature of 97.4 with a heart rate of 104, blood pressure 133/84, respiratory rate of 18 and oxygen saturation of 98%. Her lab was done and her WBCs were 13,800. She was in the Emergency Room two days ago and her WBCs were 7,400. Her hemoglobin and hematocrit were stable at 13.4 and 41.4. Electrolytes were basically within normal limits with the exception of her chloride was slightly low at 100 and her blood sugar was slightly high at 162. Lactic acid was 1.3. Urinalysis was unremarkable except for 2+ yeast. Blood cultures were drawn. The Emergency Room doctor also ordered a head CT as well as an orbit and sinus CT. Results of the head CT, sinus CT, orbital CT and soft tissue of the neck showed no acute intracranial abnormality or abnormal enhancement, unchanged subcutaneous nodules in the right retroauricular/paramastoid soft tissues. No retrobulbar abnormality, no paranasal sinus disease. The Emergency Room physician had concerns for orbital edema or cellulitis due to her headache so he called an inside channel account manager at [facility] and because of the reassuring exam as well as CT findings, orbital cellulitis was unlikely and thought it could be treated as an inpatient with IV antibiotics in the hospital. He had started Rocephin and vancomycin and she agreed with those antibiotic orders. She was also given some Toradol for pain. She was admitted in stable condition. LABORATORY: White count initially was 13,800 and at discharge was 8,300. Chemistries were essentially unremarkable and remained within normal limits. C- reactive protein was normal at 0.9. Urinalysis showed 3 to 4 RBCs, 20 to 30 WBCs, 20 to 30 epithelials with 2+ budding yeast. Urine screen for was negative. MICROBIOLOGY: Blood cultures remained negative after 5 days. RADIOLOGY: She had multiple CTs including head, orbit, sinus and soft tissues of the neck with those findings indicating per radiologic interpretation no acute intracranial abnormality of abnormal enhancement. There were unchanged subcutaneous nodules in the right retro-auricle and paramastoid soft tissue, but no retrobulbar antibiotics, no paranasal sinus disease. HOSPITAL COURSE: Ms. Murray was admitted as noted above and treated for facial cellulitis with parenteral antibiotic that included Rocephin and vancomycin. She showed good clinical response to treatment and on day of discharge was felt clinically stable enough to continue with outpatient management. DISCHARGE ASSESSMENT: VITAL SIGNS: Temperature 98.2. Pulse 81. Blood pressure 114/71. Respirations 15. Saturation 99% on room air. GENERAL: The patient was resting comfortably. She was alert and in no acute distress. HEENT: There was no erythema or ecchymotic areas or any evidence of significant cellulitis to the face on final exam. She was a little tender to palpation, but no crepitus, no obvious areas of consolidation. CHEST: Clear to auscultation. HEART: Regular rate and rhythm. ABDOMEN: Soft, nontender. Positive bowel sounds. NEUROLOGIC: Alert and oriented times 3. PLAN: Ms. Murray was discharged to continue with outpatient management to followup with her dental specialist on recommendations. She was continue with Augmentin as previous to hospitalization with addition of Bactrim DS 1 tablet twice daily as directed for continued treatment course of 5 days. She was to resume all her medications as prior to hospitalization. She was to resume her usual diet as tolerated, increase activity as tolerated and return to the hospital should she have any worsening or concerning symptoms. CONDITION ON DISCHARGE: Stable and improved. DISPOSITION: The patient was discharged to care of family members. [facility][id number] [facility]
== END 2019-03-07 11:59 | disposition home or self-care (01) | DRG 872 ==
LOC: ER 21:32 → MS 03-05 01:31 → OBSVTOIN 03-05 01:31
PROVIDERS: ADMIT Nurse Practitioner Acute Care; ATTEND Nurse Practitioner Family
PROC: BW291ZZ Computerized Tomography (CT Scan) of Head and Neck using Low Osmolar Contrast (ICD-10-PCS; principal; 2019-03-04)
DX: A41.9 Sepsis, unspecified organism (principal); L03.211 Cellulitis of face; H05.011 Cellulitis of right orbit; B37.3 Candidiasis of vulva and vagina; F90.9 Attention-deficit hyperactivity disorder, unspecified type; Z79.899 Other long term (current) drug therapy

== ENCOUNTER 2020-01-21 09:58 | Emergency (ER) | payer OTHER ==
[2020-01-21 10:19] VITALS: TEMP 97.7
--- NOTE | 2020-01-21 10:22 | ED.PDOC ---
History of Present Illness - General Chief Complaint: Respiratory Problem Stated Complaint: Congestion, cough, TRAN, sore throat Time Seen by Provider: 01/21/20 10:09 Source: RN notes reviewed, Vital Signs reviewed Exam Limitations: no limitations - History of Present Illness Comments: 2 days Cough Quality/Degree: mild Possible Cause: occasional episodes Improving Factors: nothing Worsening Factors: nothing Associated Symptoms: cough, muscle aches, nasal congestion, nasal drainage, sore throat Respiratory Risk Factors: no cause identified Allergies/Adverse Reactions: Allergies NO KNOWN ALLERGY Allergy (Verified 01/21/20 10:19) Home Medications: Ambulatory Orders Acetaminophen W/ Codeine [Tylenol W/ CODEINE #3] 1 ea PO Q6H PRN #20 03/02/19 Amoxicillin & Pot Clavulanate [Augmentin Tab] 875 mg PO BID #14 tab 03/02/19 Sulfamethoxazole-Trimethoprim [Bactrim Ds 800-160 mg] 1 tab PO BID #10 tab 03/07/19 Review of Systems - Review of Systems Constitutional: States: see HPI EENTM: States: nose pain, nose congestion, throat pain. Denies: blurred vision, ear pain, ear discharge Respiratory: States: cough. Denies: short of breath Cardiology: Denies: chest pain, palpitations Gastrointestinal/Abdominal: Denies: abdominal pain, constipation, diarrhea, nausea Musculoskeletal: Denies: joint swelling, muscle pain Skin: Denies: change in hair/nails, dryness Neurological: Denies: headache, numbness Endocrine: Denies: increased thirst, increased urine Hematologic/Lymphatic: Denies: blood clots, easy bleeding Past Medical History (General) - Patient Medical History Hx Seizures: No Hx Stroke: No Hx Dementia: No Hx Asthma: No Hx of COPD: No Hx Cardiac Disorders: No Hx Congestive Heart Failure: No Hx Pacemaker: No Hx Hypertension: No Hx Thyroid Disease: No Hx Diabetes: No Hx Gastroesophageal Reflux: No Hx Renal Disease: No Hx Cancer: No Hx of HIV: No Hx Hepatitis C: No Hx MRSA: No Surgical History: no surgical history - Vaccination History Hx Tetanus, Diphtheria Vaccination: Yes Hx Influenza Vaccination: No Hx Pneumococcal Vaccination: No - Social History Hx Tobacco Use: No Hx Chewing Tobacco Use: No Hx Alcohol Use: No Hx Substance Use: No Hx Substance Use Treatment: No Hx Depression: No Hx Physical Abuse: No Hx Emotional Abuse: No Hx Suspected Abuse: No - Female History Patient is a Female of Child Bearing Age (10 -59 yrs old): Yes Hx Last Menstrual Period: 09/20/13 Patient : Yes Family Medical History - Family History Grandparents Hx Family Hypertension: Yes Hx Cardiac Disease: Yes Mother Family History: Unknown Living Status: Still Living Physical Exam - Physical Exam General Appearance: Alert ENT Exam: TMs normal, nasal congestion, nasal drainage, pharyngeal erythema Neck: non-tender, full range of motion Respiratory: chest non-tender, normal breath sounds Cardiovascular/Chest: normal peripheral pulses, regular rate, rhythm, tachycardia Gastrointestinal/Abdominal: normal bowel sounds, no organomegaly Extremity: normal range of motion, non-tender Neurologic: alert, normal mood/affect Progress - Progress Progress: The patient is a 23 weeks , 11 weeks that presents to the ED with complains of uri SYMPTOMS, denies any abdominal pain , denies any Vaginal bleeding or discharge. Respiratory panel obtained results pending will call patient with results . strep negative. symptomatic management advised . the patient slightly tachycardia, advised to drink more water . she verbalized understanding 01/21/20 10:25 01/21/20 10:44 01/21/20 10:47 Departure - Departure Clinical Impression: Upper respiratory infection Disposition: Discharge to Home or Self Care Condition: Fair Departure Forms: ED Discharge - Pt. Copy, Patient Portal Self Enrollment Activity: increase activity as tolerated Referrals: Esther Garcia DO [Non-Staff] - 1-2 Weeks Home Medications: Ambulatory Orders Acetaminophen W/ Codeine [Tylenol W/ CODEINE #3] 1 ea PO Q6H PRN #20 03/02/19 Amoxicillin & Pot Clavulanate [Augmentin Tab] 875 mg PO BID #14 tab 03/02/19 Sulfamethoxazole-Trimethoprim [Bactrim Ds 800-160 mg] 1 tab PO BID #10 tab 03/07/19 Additional Instructions: oral hydration encouraged.' followup with gynecology and pcP IN 1-2 DAYS . OvER the counter Tylenol for fevers as needed
[2020-01-21 11:01] VITALS: BP 126/81; O2SAT 96
== END 2020-01-21 10:59 | disposition home or self-care (01) ==
LOC: ER 09:58
DX: O99.511 Diseases of the respiratory system complicating pregnancy, first trimester (principal); J06.9 Acute upper respiratory infection, unspecified; J02.9 Acute pharyngitis, unspecified; Z3A.11 11 weeks gestation of pregnancy